=== PATIENT | female | born 1935 | race Asian ===

== ENCOUNTER 2017-10-19 05:13 | Inpatient (IN) | payer MEDICARE, OTHER ==
[2017-10-19] VITALS (13 sets, daily range): BP systolic 92–150; BP diastolic 56–87
[~2017-10-19] VITALS: Ht 152.4 cm; Wt 39.1 kg
[2017-10-19 05:27] LABS: BASOPHILS % (AUTO) 0.3 % (0.0-2.0); EOSINOPHILS % (AUTO) 0 % (1.0-6.0); HEMATOCRIT 41.7 % (36-46); HEMOGLOBIN 14.4 g/dL (12.0-16.0); LYMPHOCYTES # (AUTO) 0.4 K/uL (1.0-4.8); LYMPHOCYTES % (AUTO) 3.9 % (22.0-44.0); MEAN CORPUSCULAR HEMOGLOBIN 34.3 pg (26.0-34.0); MEAN CORPUSCULAR HGB CONC 34.5 G/dL (31.0-37.0); MEAN CORPUSCULAR VOLUME 99 fL (80-100); MONOCYTES # (AUTO) 0.6 K/uL (0.1-1.0); MONOCYTES % (AUTO) 5.7 % (2.0-9.0); NEUTROPHILS # (AUTO) 9.8 K/uL (1.8-7.7); PLATELET COUNT (AUTO) 234 K/uL (150-450); RED CELL DISTRIBUTION WIDTH 13.3 % (11.5-14.5)
[2017-10-19 05:28] LABS: NEUTROPHILS % (AUTO) 90.1 % (40.0-70.0)
[2017-10-19] MEDS ORDERED: DOCU250C91 PO (05:33)
[2017-10-19] MEDS ORDERED: LEVE250T55 PO (05:33)
[2017-10-19] MEDS ORDERED: NITR50CA PO (05:33)
[2017-10-19] MEDS ORDERED: ATOR40TA28 PO (05:33)
[2017-10-19] MEDS ORDERED: THIA100 PO (05:33)
[2017-10-19] MEDS ORDERED: LACT1CAP38 PO (05:33)
[2017-10-19] MEDS ORDERED: PANT40TA25 PO (05:33)
[2017-10-19 05:34] LABS: CALCIUM, TOTAL 8.6 mg/dL (8.8-10.5); CREATININE 0.9 mg/dL (0.60-1.30); POTASSIUM 3.3 mmol/L (3.5-5.1)
[2017-10-19 05:44] LABS: ALBUMIN 3.5 g/dL (3.4-5.0); BILIRUBIN,TOTAL 0.2 mg/dL (0.1-1.0); TOTAL PROTEIN, SERUM 7.9 g/dL (6.4-8.2)
[2017-10-19] MEDS ORDERED: SODIUM CHLORIDE 0.9% 1,000 ML IV ONE (06:30)
[2017-10-19] MEDS ORDERED: ASPIRIN 300 MG RECTAL SUPPOSITORY PR ONE (07:00)
[2017-10-19 07:06] LABS: APPEARANCE,URINE CLEAR (CLEAR); GLUCOSE, URINE (UA) NEGATIVE (NEGATIVE); PROTEIN,URINE POS 1+ (NEGATIVE)
[2017-10-19 07:07] LABS: BILIRUBIN,URINE NEGATIVE (NEGATIVE); KETONES,URINE NEGATIVE (NEGATIVE); LEUKOCYTE ESTERASE ,URINE TRACE (NEGATIVE); NITRATE,URINE NEGATIVE (NEGATIVE); OCCULT BLOOD,URINE SMALL (NEGATIVE); UROBILINOGEN,URINE 0.2 mg/dL (<=1.0)
[2017-10-19 07:12] LABS: BACTERIA,URINE Few /HPF (None Seen); RBC,URINE 0-2 /HPF (0-2)
[2017-10-19 07:13] LABS: HYALINE CASTS, URINE 0-2 /LPF (None Seen); SQUAMOUS EPITHELIAL CELL,UR Few /LPF (None Seen)
[2017-10-19 07:15] LABS: FINE GRANULAR CASTS,URINE 0-2 /LPF (None Seen)
[2017-10-19] MEDS ORDERED: HEPARIN SODIUM,PORCINE 5,000 UNITS/ML VIAL IVP ONE ×2 (07:15→13:56)
[2017-10-19] MEDS ORDERED: HEPARIN SODIUM,PORCINE 5,000 UNITS/ML VIAL IVP PRN ×2 (07:15)
[2017-10-19 07:18] LABS: PHENYTOIN (DILANTIN) 2.9 mcg/mL (10.0-20.0)
[2017-10-19] MEDS: HEPARIN SODIUM 25000 UNITS/D5W 250 ML IV PRN ×2 (07:22→09:44)
[2017-10-19] MEDS: HEPARIN SODIUM,PORCINE 5,000 UNITS/ML VIAL IVP ONE ×2 (07:24→09:05)
[2017-10-19] MEDS ORDERED: HEPARIN SODIUM,PORCINE 1,000 UNITS/ML 10 ML VIAL ONE (07:43)
[2017-10-19] MEDS ORDERED: VERAPAMIL HCL 2.5 MG/ML 2 ML VIAL ONE (07:43)
[2017-10-19] MEDS ORDERED: LIDOCAINE HCL/PF 1% 30 ML VIAL ONE ×2 (07:43→10:10)
[2017-10-19] MEDS ORDERED: SODIUM BICARBONATE 50 MEQ/50 ML VIAL ONE ×2 (07:43→10:10)
[2017-10-19] MEDS ORDERED: NITROGLYCERIN 50 MG/D5% WATER 250 ML ONE (07:43)
[2017-10-19] MEDS ORDERED: IOHEXOL 300 MG/ML 150 ML VIAL ONE ×2 (07:44→10:10)
[2017-10-19] MEDS ORDERED: IOHEXOL 300 MG/ML 100 ML VIAL ONE (07:45)
[2017-10-19] MEDS ORDERED: HEPARIN SODIUM 1000 UNITS/NS 1,000 ML ONE ×2 (07:45→10:10)
[2017-10-19] MEDS ORDERED: ALBUTEROL SULFATE 2.5 MG/0.5 ML NEB SOLUTION NEB PRN (09:15)
[2017-10-19] MEDS ORDERED: MORPHINE SULFATE 2 MG/ML SYRINGE IVP PRN (09:15)
[2017-10-19] MEDS ORDERED: POTASSIUM CHL 10 MEQ/WATER 50 ML IV ONE (09:15)
[2017-10-19] MEDS ORDERED: ACETAMINOPHEN 325 MG TABLET PO PRN (09:15)
[2017-10-19] MEDS ORDERED: MAGNESIUM HYDROXIDE SUSPENSION 30 ML UDCUP PO PRN (09:15)
[2017-10-19] MEDS: PRAVASTATIN SODIUM 20 MG TABLET PO SCH (09:15)
[2017-10-19] MEDS ORDERED: TICAGRELOR 90 MG TABLET PO ONE ×2 (09:30→14:45)
[2017-10-19] MEDS: PANTOPRAZOLE SODIUM 40 MG/VIAL IVP SCH (09:41)
[2017-10-19] MEDS: LevETIRAcetam 250 MG in DEXTROSE 5%-WATER 100 ML IV SCH ×2 (09:49→19:55)
[2017-10-19 10:09] LABS: LACTIC ACID 2.8 mmol/L (0.4-2.0)
[2017-10-19] MEDS ORDERED: DOPamine HCL 400 MG/D5%-WATER 250 ML IV ONE (10:54)
[2017-10-19] MEDS ORDERED: SODIUM CHLORIDE 0.9% 500 ML IV ONE ×2 (10:58→13:45)
[2017-10-19] MEDS ORDERED: LIDOCAINE 1% 30 ML/SOD BICARB 8.4% 4 ML SQ ONE ×2 (10:59→13:51)
[2017-10-19] MEDS ORDERED: DOPamine HCL 400 MG/D5%-WATER 250 ML IV PRN (11:00)
[2017-10-19] MEDS ORDERED: HEPARIN SODIUM 2,000 UNITS in HEPARIN SODIUM 1000 UNITS/NS 1,000 ML IARTER ONE ×2 (11:02→13:52)
[2017-10-19] MEDS ORDERED: IOHEXOL 300 MG/ML 100 ML VIAL IARTER ONE (11:06)
[2017-10-19] MEDS ORDERED: IOHEXOL 300 MG/ML 150 ML VIAL IARTER ONE (11:06)
[2017-10-19] MEDS ORDERED: PHENYLEPHRINE 200 MG/D5%-WATER 250 ML IV PRN (11:15)
[2017-10-19] MEDS ORDERED: NOREPINEPHRINE 4 MG/D5%-WATER 250 ML IV PRN ×2 (11:15→11:20)
[2017-10-19] MEDS ORDERED: MACR100 PO (12:30)
[2017-10-19] MEDS ORDERED: PANT20TA12 PO (12:30)
[2017-10-19] MEDS ORDERED: SODIUM CHLORIDE 0.9% 250 ML IV ONE ×3 (12:41→23:07)
[2017-10-19] MEDS ORDERED: FentaNYL CITRATE-PF 100 MCG/2 ML VIAL IVP ONE (13:47)
[2017-10-19] MEDS ORDERED: MIDAZOLAM HCL 2 MG/2 ML VIAL IVP ONE (13:47)
[2017-10-19] MEDS ORDERED: POTASSIUM CHLORIDE 20 MEQ ER TABLET PO PRN ×2 (14:00)
[2017-10-19] MEDS ORDERED: POTASSIUM CHLORIDE 10% 40 MEQ/30 ML LIQUID UDCUP NG PRN (14:00)
[2017-10-19] MEDS ORDERED: NITROGLYCERIN/D5W 50 MG/250 ML IV BOTTLE ICOR ONE (14:22)
[2017-10-19] MEDS ORDERED: VERAPAMIL HCL 2.5 MG/ML 2 ML VIAL ICOR ONE (14:22)
[2017-10-19] MEDS: POTASSIUM CHL 10 MEQ/WATER 50 ML IV PRN ×2 (16:22→18:09)
[2017-10-19] MEDS: LORazepam 2 MG/ML VIAL IVP PRN ×2 (16:22→21:22)
[2017-10-19] MEDS ORDERED: LevETIRAcetam 750 MG in DEXTROSE 5%-WATER 100 ML IV ONE (20:30)
[2017-10-19] MEDS: TICAGRELOR 90 MG TABLET PO SCH (21:00)
[2017-10-19] MEDS: DOCUSATE SODIUM 100 MG CAPSULE PO SCH (21:00)
[2017-10-19] MEDS ORDERED: PHENYTOIN SODIUM 750 MG in SODIUM CHLORIDE 0.9% 100 ML IV ONE ×2 (23:00→23:15)
[2017-10-19] MEDS ORDERED: LORazepam 2 MG/ML VIAL IVP PRN (23:15)
[2017-10-20] VITALS: BP 71/44
[2017-10-20] MEDS ORDERED: PHENYLEPHRINE 200 MG/D5%-WATER 250 ML IV PRN (00:05)
[2017-10-20] MEDS ORDERED: NOREPINEPHRINE 4 MG/D5%-WATER 0 ML IV ONE (00:06)
[2017-10-20 04:00] VITALS: BP 104/71
[2017-10-20 05:07] LABS: HEMATOCRIT 38.7 % (36-46); HEMOGLOBIN 13.1 g/dL (12.0-16.0); MEAN CORPUSCULAR HEMOGLOBIN 33.6 pg (26.0-34.0); MEAN CORPUSCULAR VOLUME 99 fL (80-100); PLATELET COUNT (AUTO) 251 K/uL (150-450); RED BLOOD CELL COUNT(AUTO) 3.91 MIL/uL (4.00-5.20); RED CELL DISTRIBUTION WIDTH 13.1 % (11.5-14.5)
[2017-10-20 05:18] LABS: ALANINE AMINOTRANSFERASE 51 U/L (12-78); ALBUMIN 2.9 g/dL (3.4-5.0); ALKALINE PHOSPHATASE 133 U/L (46-116); ANION GAP 10 mmol/L (8-16); ASPARTATE AMINOTRANSFERASE 62 U/L (15-37); BILIRUBIN,TOTAL 0.7 mg/dL (0.1-1.0); CALCIUM, TOTAL 8.4 mg/dL (8.8-10.5); CARBON DIOXIDE 27 mmol/L (22-29); CHLORIDE 105 mmol/L (98-107); CREATININE 0.79 mg/dL (0.60-1.30); GLOMERULAR FILTR. RATE CALC > 60 mL/min (>60); GLUCOSE,RANDOM 133 mg/dL (70-110); PHENYTOIN (DILANTIN) 17.9 mcg/mL (10.0-20.0); POTASSIUM 3.7 mmol/L (3.5-5.1); SODIUM SERUM 142 mmol/L (136-145); TOTAL PROTEIN, SERUM 6.8 g/dL (6.4-8.2); UREA NITROGEN, BLOOD 24 mg/dL (7-18)
[2017-10-20 07:59] LABS: BAND NEUTROPHILS % (MANUAL) 34 % (0-5); LYMPHOCYTES % (MANUAL) 3 % (22-44); MONOCYTES % (MANUAL) 3 % (2-9); SEGMENTED NEUTROPHILS % 60 % (40-70)
[2017-10-20 08:00] VITALS: BP 96/62
[2017-10-20] MEDS ORDERED: MAGNESIUM SULFATE 4 GM/WATER 100 ML IV PRN (08:45)
[2017-10-20] MEDS ORDERED: MAGNESIUM OXIDE 400 MG TABLET PO PRN (08:45)
[2017-10-20] MEDS ORDERED: MAGNESIUM SULFATE 2 GM in DEXTROSE 5%-WATER 50 ML IV PRN (08:45)
[2017-10-20] MEDS ORDERED: MAGNESIUM SULFATE 1 GM in DEXTROSE 5%-WATER 50 ML IV ONE (08:45)
[2017-10-20] MEDS: TICAGRELOR 90 MG TABLET PO SCH ×2 (08:47→20:10)
[2017-10-20] MEDS: PRAVASTATIN SODIUM 20 MG TABLET PO SCH (08:47)
[2017-10-20] MEDS: DOCUSATE SODIUM 100 MG CAPSULE PO SCH ×2 (08:47→20:10)
[2017-10-20] MEDS: PANTOPRAZOLE SODIUM 40 MG/VIAL IVP SCH (08:48)
[2017-10-20] MEDS: ASPIRIN 81 MG EC TABLET PO SCH (09:07)
[2017-10-20] MEDS: LevETIRAcetam 1,000 MG in DEXTROSE 5%-WATER 100 ML IV SCH ×2 (09:08→20:10)
[2017-10-20] MEDS: SODIUM CHLORIDE 0.9% 1,000 ML IV SCH (09:08)
[2017-10-20 12:00] VITALS: BP 88/50
[2017-10-20] MEDS ORDERED: *CLINICAL-RX DOSING [ENTER DRUG IN COMMENTS] CLINICAL ONE (12:00)
[2017-10-20] MEDS ORDERED: MEROPENEM 1 GM in SODIUM CHLORIDE 0.9% 100 ML IV ONE (12:15)
[2017-10-20 16:00] VITALS: BP 95/53
[2017-10-20 17:08] LABS: GLUCOMETER DEV NAME(LOC) 5N 2S; GLUCOSE,POINT OF CARE 186 MG/DL (70-110)
[2017-10-20 20:00] VITALS: BP 104/50
[2017-10-20] MEDS: PHENYTOIN 100 MG/4 ML SUSPENSION UDCUP NG SCH (20:09)
[2017-10-21] VITALS: BP 94/51
[2017-10-21] MEDS: MEROPENEM 1 GM in SODIUM CHLORIDE 0.9% 100 ML IV SCH ×2 (01:53→12:07)
[2017-10-21 04:00] VITALS: BP 114/54
[2017-10-21] MEDS: SODIUM CHLORIDE 0.9% 1,000 ML IV SCH (04:58)
[2017-10-21 05:37] LABS: ALANINE AMINOTRANSFERASE 42 U/L (12-78); ALBUMIN 2.5 g/dL (3.4-5.0); ALKALINE PHOSPHATASE 104 U/L (46-116); ANION GAP 8 mmol/L (8-16); ASPARTATE AMINOTRANSFERASE 64 U/L (15-37); BILIRUBIN,TOTAL 0.5 mg/dL (0.1-1.0); CALCIUM, TOTAL 8.1 mg/dL (8.8-10.5); CARBON DIOXIDE 28 mmol/L (22-29); CHLORIDE 107 mmol/L (98-107); CREATININE 0.75 mg/dL (0.60-1.30); GLOMERULAR FILTR. RATE CALC > 60 mL/min (>60); GLUCOSE,RANDOM 84 mg/dL (70-110); POTASSIUM 3.4 mmol/L (3.5-5.1); SODIUM SERUM 143 mmol/L (136-145); TOTAL PROTEIN, SERUM 6.1 g/dL (6.4-8.2); UREA NITROGEN, BLOOD 34 mg/dL (7-18)
[2017-10-21] MEDS: POTASSIUM CHLORIDE 10% 40 MEQ/30 ML LIQUID UDCUP NG PRN (06:24)
[2017-10-21 06:42] LABS: BASOPHILS % (AUTO) 0.2 % (0.0-2.0); EOSINOPHILS % (AUTO) 0.1 % (1.0-6.0); HEMATOCRIT 33.2 % (36-46); HEMOGLOBIN 11.4 g/dL (12.0-16.0); LYMPHOCYTES # (AUTO) 1.1 K/uL (1.0-4.8); LYMPHOCYTES % (AUTO) 7.5 % (22.0-44.0); MEAN CORPUSCULAR HEMOGLOBIN 34.1 pg (26.0-34.0); MEAN CORPUSCULAR HGB CONC 34.4 G/dL (31.0-37.0); MEAN CORPUSCULAR VOLUME 99 fL (80-100); MONOCYTES # (AUTO) 0.9 K/uL (0.1-1.0); MONOCYTES % (AUTO) 6.5 % (2.0-9.0); NEUTROPHILS # (AUTO) 12.5 K/uL (1.8-7.7); PLATELET COUNT (AUTO) 169 K/uL (150-450); RED BLOOD CELL COUNT(AUTO) 3.35 MIL/uL (4.00-5.20); RED CELL DISTRIBUTION WIDTH 13.1 % (11.5-14.5)
[2017-10-21 06:44] LABS: NEUTROPHILS % (AUTO) 85.7 % (40.0-70.0)
[2017-10-21 08:00] VITALS: BP 114/58
[2017-10-21] MEDS: DOCUSATE SODIUM 100 MG CAPSULE PO SCH ×2 (08:34→21:35)
[2017-10-21] MEDS: PRAVASTATIN SODIUM 20 MG TABLET PO SCH (08:34)
[2017-10-21] MEDS: PANTOPRAZOLE SODIUM 40 MG/VIAL IVP SCH (08:34)
[2017-10-21] MEDS: ASPIRIN 81 MG EC TABLET PO SCH (08:34)
[2017-10-21] MEDS: TICAGRELOR 90 MG TABLET PO SCH ×2 (08:34→21:35)
[2017-10-21] MEDS: LevETIRAcetam 1,000 MG in DEXTROSE 5%-WATER 100 ML IV SCH ×2 (08:35→21:34)
[2017-10-21] MEDS ORDERED: LISINOPRIL 5 MG TABLET PO SCH (09:00)
[2017-10-21] MEDS ORDERED: FUROSEMIDE 40 MG/4 ML VIAL IVP ONE (09:30)
[2017-10-21] MEDS ORDERED: DEXTROSE 5%-0.45% SODIUM CHL 1,000 ML IV SCH (09:30)
[2017-10-21 12:00] VITALS: BP 142/61
[2017-10-21 16:00] VITALS: BP 116/58
[2017-10-21 20:00] VITALS: BP 114/50
[2017-10-21] MEDS ORDERED: METOPROLOL SUCCINATE 25 MG ER TABLET PO SCH (21:00)
[2017-10-21] MEDS: PHENYTOIN 100 MG/4 ML SUSPENSION UDCUP NG SCH (21:35)
[2017-10-22] VITALS: BP 107/49
[2017-10-22] MEDS: MEROPENEM 1 GM in SODIUM CHLORIDE 0.9% 100 ML IV SCH ×2 (00:37→13:13)
[2017-10-22] MEDS ORDERED: SODIUM CHLORIDE 0.9% 250 ML IV ONE (00:42)
[2017-10-22 04:00] VITALS: BP 116/47
[2017-10-22 05:17] LABS: ALANINE AMINOTRANSFERASE 46 U/L (12-78); ALBUMIN 2.5 g/dL (3.4-5.0); ALKALINE PHOSPHATASE 108 U/L (46-116); ANION GAP 10 mmol/L (8-16); ASPARTATE AMINOTRANSFERASE 72 U/L (15-37); BILIRUBIN,TOTAL 0.4 mg/dL (0.1-1.0); CALCIUM, TOTAL 8.2 mg/dL (8.8-10.5); CARBON DIOXIDE 27 mmol/L (22-29); CHLORIDE 107 mmol/L (98-107); CREATININE 0.76 mg/dL (0.60-1.30); GLOMERULAR FILTR. RATE CALC > 60 mL/min (>60); GLUCOSE,RANDOM 99 mg/dL (70-110); POTASSIUM 3.2 mmol/L (3.5-5.1); SODIUM SERUM 144 mmol/L (136-145); TOTAL PROTEIN, SERUM 6.3 g/dL (6.4-8.2); UREA NITROGEN, BLOOD 33 mg/dL (7-18)
[2017-10-22 05:42] LABS: BASOPHILS % (AUTO) 0.2 % (0.0-2.0); EOSINOPHILS % (AUTO) 0.3 % (1.0-6.0); LYMPHOCYTES # (AUTO) 0.9 K/uL (1.0-4.8); LYMPHOCYTES % (AUTO) 6.4 % (22.0-44.0); MEAN CORPUSCULAR HEMOGLOBIN 33.9 pg (26.0-34.0); MEAN CORPUSCULAR HGB CONC 34.2 G/dL (31.0-37.0); MEAN CORPUSCULAR VOLUME 99 fL (80-100); MONOCYTES # (AUTO) 0.8 K/uL (0.1-1.0); MONOCYTES % (AUTO) 6.1 % (2.0-9.0); NEUTROPHILS # (AUTO) 11.7 K/uL (1.8-7.7); RED BLOOD CELL COUNT(AUTO) 3.24 MIL/uL (4.00-5.20); RED CELL DISTRIBUTION WIDTH 13.4 % (11.5-14.5)
[2017-10-22] MEDS: POTASSIUM CHLORIDE 10% 40 MEQ/30 ML LIQUID UDCUP NG PRN (06:40)
[2017-10-22 08:00] VITALS: BP 126/59
[2017-10-22 08:55] LABS: PLATELET COUNT (AUTO) 205 K/uL (150-450)
[2017-10-22] MEDS: LevETIRAcetam 1,000 MG in DEXTROSE 5%-WATER 100 ML IV SCH ×2 (09:08→20:47)
[2017-10-22] MEDS: PANTOPRAZOLE SODIUM 40 MG/VIAL IVP SCH (09:08)
[2017-10-22] MEDS: TICAGRELOR 90 MG TABLET PO SCH ×2 (09:09→20:47)
[2017-10-22] MEDS: ASPIRIN 81 MG EC TABLET PO SCH (09:10)
[2017-10-22] MEDS: DOCUSATE SODIUM 100 MG CAPSULE PO SCH ×2 (09:10→20:48)
[2017-10-22] MEDS: LISINOPRIL 5 MG TABLET PO SCH ×2 (09:15→20:48)
[2017-10-22] MEDS: METOPROLOL SUCCINATE 25 MG ER TABLET PO SCH ×2 (09:19→20:48)
[2017-10-22 10:45] LABS: PHENYTOIN (DILANTIN) 12.4 mcg/mL (10.0-20.0)
[2017-10-22 12:00] VITALS: BP 133/67
[2017-10-22] MEDS: PRAVASTATIN SODIUM 20 MG TABLET PO SCH (12:02)
[2017-10-22 16:00] VITALS: BP 141/62
[2017-10-22 20:00] VITALS: BP 141/68
[2017-10-22] MEDS: PHENYTOIN 100 MG/4 ML SUSPENSION UDCUP NG SCH (20:47)
[2017-10-23] VITALS: BP 131/58
[2017-10-23] MEDS: MEROPENEM 1 GM in SODIUM CHLORIDE 0.9% 100 ML IV SCH ×2 (01:15→12:31)
[2017-10-23] MEDS ORDERED: SODIUM CHLORIDE 0.9% 100 ML ONE (01:19)
[2017-10-23 04:00] VITALS: BP 130/73
[2017-10-23 05:22] LABS: ALANINE AMINOTRANSFERASE 45 U/L (12-78); ALBUMIN 2.4 g/dL (3.4-5.0); ALKALINE PHOSPHATASE 115 U/L (46-116); ANION GAP 8 mmol/L (8-16); ASPARTATE AMINOTRANSFERASE 64 U/L (15-37); BILIRUBIN,TOTAL 0.4 mg/dL (0.1-1.0); CARBON DIOXIDE 30 mmol/L (22-29); CHLORIDE 105 mmol/L (98-107); CREATININE 0.52 mg/dL (0.60-1.30); GLOMERULAR FILTR. RATE CALC > 60 mL/min (>60); GLUCOSE,RANDOM 108 mg/dL (70-110); POTASSIUM 3.7 mmol/L (3.5-5.1); SODIUM SERUM 143 mmol/L (136-145); TOTAL PROTEIN, SERUM 6.4 g/dL (6.4-8.2); UREA NITROGEN, BLOOD 24 mg/dL (7-18)
[2017-10-23 05:30] LABS: BASOPHILS % (AUTO) 0.2 % (0.0-2.0); EOSINOPHILS % (AUTO) 0.9 % (1.0-6.0); HEMATOCRIT 34.6 % (36-46); HEMOGLOBIN 11.8 g/dL (12.0-16.0); LYMPHOCYTES # (AUTO) 0.8 K/uL (1.0-4.8); LYMPHOCYTES % (AUTO) 10.2 % (22.0-44.0); MEAN CORPUSCULAR HEMOGLOBIN 33.5 pg (26.0-34.0); MEAN CORPUSCULAR VOLUME 99 fL (80-100); MONOCYTES # (AUTO) 0.6 K/uL (0.1-1.0); MONOCYTES % (AUTO) 7.9 % (2.0-9.0); NEUTROPHILS # (AUTO) 6.2 K/uL (1.8-7.7); NEUTROPHILS % (AUTO) 80.8 % (40.0-70.0); PLATELET COUNT (AUTO) 226 K/uL (150-450); RED BLOOD CELL COUNT(AUTO) 3.51 MIL/uL (4.00-5.20); RED CELL DISTRIBUTION WIDTH 13.3 % (11.5-14.5)
[2017-10-23 08:00] VITALS: BP 157/78
[2017-10-23] MEDS: PANTOPRAZOLE SODIUM 40 MG/VIAL IVP SCH (09:03)
[2017-10-23] MEDS: TICAGRELOR 90 MG TABLET PO SCH ×2 (09:03→20:09)
[2017-10-23] MEDS: DOCUSATE SODIUM 100 MG CAPSULE PO SCH ×2 (09:03→20:10)
[2017-10-23] MEDS: PRAVASTATIN SODIUM 20 MG TABLET PO SCH (09:04)
[2017-10-23] MEDS: ASPIRIN 81 MG EC TABLET PO SCH (09:04)
[2017-10-23] MEDS: LISINOPRIL 5 MG TABLET PO SCH ×2 (09:04→20:20)
[2017-10-23] MEDS: METOPROLOL SUCCINATE 25 MG ER TABLET PO SCH ×2 (09:06→20:20)
[2017-10-23] MEDS: LevETIRAcetam 1,000 MG in DEXTROSE 5%-WATER 100 ML IV SCH ×2 (09:25→20:19)
[2017-10-23 11:46] VITALS: BP 143/68
[2017-10-23] MEDS ORDERED: SODIUM CHLORIDE 0.9% 50 ML ONE (11:52)
[2017-10-23 15:58] VITALS: BP 114/69
[2017-10-23 19:22] VITALS: BP 90/52
[2017-10-23] MEDS: PHENYTOIN 100 MG/4 ML SUSPENSION UDCUP NG SCH (20:09)
[2017-10-24] VITALS: BP 100/64
[2017-10-24] MEDS: MEROPENEM 1 GM in SODIUM CHLORIDE 0.9% 100 ML IV SCH ×2 (01:14→13:25)
[2017-10-24 04:14] VITALS: BP 118/65
[2017-10-24 06:20] LABS: BASOPHILS % (AUTO) 0.4 % (0.0-2.0); EOSINOPHILS % (AUTO) 2.2 % (1.0-6.0); HEMATOCRIT 32.8 % (36-46); HEMOGLOBIN 11.5 g/dL (12.0-16.0); LYMPHOCYTES # (AUTO) 0.9 K/uL (1.0-4.8); LYMPHOCYTES % (AUTO) 15.4 % (22.0-44.0); MEAN CORPUSCULAR HEMOGLOBIN 34.3 pg (26.0-34.0); MEAN CORPUSCULAR VOLUME 98 fL (80-100); MONOCYTES # (AUTO) 0.5 K/uL (0.1-1.0); MONOCYTES % (AUTO) 9.4 % (2.0-9.0); NEUTROPHILS # (AUTO) 4.2 K/uL (1.8-7.7); NEUTROPHILS % (AUTO) 72.6 % (40.0-70.0); PLATELET COUNT (AUTO) 234 K/uL (150-450); RED BLOOD CELL COUNT(AUTO) 3.35 MIL/uL (4.00-5.20); RED CELL DISTRIBUTION WIDTH 13.1 % (11.5-14.5)
[2017-10-24 06:42] LABS: ALANINE AMINOTRANSFERASE 39 U/L (12-78); ALBUMIN 2.2 g/dL (3.4-5.0); ALKALINE PHOSPHATASE 114 U/L (46-116); ANION GAP 6 mmol/L (8-16); ASPARTATE AMINOTRANSFERASE 44 U/L (15-37); BILIRUBIN,TOTAL 0.3 mg/dL (0.1-1.0); CALCIUM, TOTAL 7.8 mg/dL (8.8-10.5); CARBON DIOXIDE 31 mmol/L (22-29); CHLORIDE 105 mmol/L (98-107); CREATININE 0.52 mg/dL (0.60-1.30); GLOMERULAR FILTR. RATE CALC > 60 mL/min (>60); GLUCOSE,RANDOM 101 mg/dL (70-110); POTASSIUM 3.5 mmol/L (3.5-5.1); SODIUM SERUM 142 mmol/L (136-145); UREA NITROGEN, BLOOD 20 mg/dL (7-18)
[2017-10-24 07:20] VITALS: BP 112/73
[2017-10-24] MEDS: PRAVASTATIN SODIUM 20 MG TABLET PO SCH (08:07)
[2017-10-24] MEDS: PANTOPRAZOLE SODIUM 40 MG/VIAL IVP SCH (08:07)
[2017-10-24] MEDS: METOPROLOL SUCCINATE 25 MG ER TABLET PO SCH (08:07)
[2017-10-24] MEDS: TICAGRELOR 90 MG TABLET PO SCH (08:08)
[2017-10-24] MEDS: ASPIRIN 81 MG EC TABLET PO SCH (08:08)
[2017-10-24] MEDS: DOCUSATE SODIUM 100 MG CAPSULE PO SCH (08:08)
[2017-10-24] MEDS: LevETIRAcetam 1,000 MG in DEXTROSE 5%-WATER 100 ML IV SCH (08:09)
[2017-10-24] MEDS: LISINOPRIL 5 MG TABLET PO SCH (08:09)
[2017-10-24 11:42] VITALS: BP 114/56
[2017-10-24 15:59] VITALS: BP 111/65
== END 2017-10-24 16:00 | disposition home or self-care (01) | DRG 871 ==
LOC: EMS 05:14 → ICU 11:24 → 5S 15:45 → ICU 21:53 → 5N 10-23 11:10
PROVIDERS: ADMIT Internal Medicine; ATTEND Internal Medicine
PROC: 4A023N7 Measurement of Cardiac Sampling and Pressure, Left Heart, Percutaneous Approach (ICD-10-PCS; principal; 2017-10-19)
PROC: B2111ZZ Fluoroscopy of Multiple Coronary Arteries using Low Osmolar Contrast (ICD-10-PCS; 2017-10-19)
PROC: B2151ZZ Fluoroscopy of Left Heart using Low Osmolar Contrast (ICD-10-PCS; 2017-10-19)
DX: A41.9 Sepsis, unspecified organism (principal); I21.4 Non-ST elevation (NSTEMI) myocardial infarction; R57.9 Shock, unspecified; E43 Unspecified severe protein-calorie malnutrition; G93.41 Metabolic encephalopathy; I42.9 Cardiomyopathy, unspecified; R64 Cachexia; N39.0 Urinary tract infection, site not specified; Z68.1 Body mass index [BMI] 19.9 or less, adult; E87.6 Hypokalemia; G40.901 Epilepsy, unspecified, not intractable, with status epilepticus; R73.9 Hyperglycemia, unspecified; E78.00 Pure hypercholesterolemia, unspecified; E78.5 Hyperlipidemia, unspecified; I10 Essential (primary) hypertension; I25.10 Atherosclerotic heart disease of native coronary artery without angina pectoris; R62.7 Adult failure to thrive; Z96.649 Presence of unspecified artificial hip joint; Z88.0 Allergy status to penicillin; Z79.899 Other long term (current) drug therapy; Z86.73 Personal history of transient ischemic attack (TIA), and cerebral infarction without residual deficits; Z87.440 Personal history of urinary (tract) infections
CPT/HCPCS: 70450; 76700; 83605; 83615; 83735; 84132; 87040; 92610; 93005; 93306; 93308; 93880; 94799; 96365; 96375; 99291; C9113; J0712; J1165; J1265; J1644; J1940; J2060; J2185; J2370; J3475; J3480; J3490; J7030; J7050; J7060; Q9967